=== PATIENT | male | born 1970 | race Caucasian/White ===

== ENCOUNTER 2017-12-05 13:13 | Emergency (ER) | payer OTHER ==
[~2017-12-05] VITALS: Ht 188 cm; Wt 86.2 kg
[~2017-12-05 13:13] MED LIST: ASPIR 8181 MG PO; SYNTHROID175 MCG PO; TOPROL XL25 M1 PO
[2017-12-05] MEDS ORDERED: FLECAINIDE ACET50 MG (14:21)
== END 2017-12-05 21:27 | disposition home or self-care (01) ==
LOC: ER 13:13
DX: M54.5 Low back pain (principal)

== ENCOUNTER 2021-01-06 08:19 | Outpatient (CLI) | payer OTHER ==
[~2021-01-06 08:19] MED LIST changes: +FLECAINIDE ACET50 MG
== END 2021-01-06 08:21 | disposition home or self-care (01) ==
LOC: SONOGRAMA 08:19
PROVIDERS: ATTEND Pathology Anatomic Pathology & Clinical Pathology
DX: E03.8 Other specified hypothyroidism (principal)